=== PATIENT | female | born 1970 | race African-American/Black ===

== ENCOUNTER 2019-10-24 11:32 | Emergency (ER) | payer SELFPAY ==
--- NOTE | 2019-10-24 12:02 | ER Document Report ---
ED Medical Screen (RME) - General Chief Complaint: High Blood Pressure Stated Complaint: HIGH BLOOD PRESSURE/HEADACHE/DIZZYNESS Time Seen by Provider: 10/24/19 12:00 Mode of Arrival: Ambulatory Information source: Patient Notes: 49-year-old female presented to ED for elevated blood pressure, headache, dizziness, and dry heaves. She states the headache and dizziness has been for couple days has high blood pressure she does take amlodipine she does not take it religiously and her blood pressure was high when she took it this morning. States she did take her amlodipine this morning. I have greeted and performed a rapid initial assessment of this patient. A comprehensive ED assessment and evaluation of the patient, analysis of test results and completion of medical decision making process will be conducted by an additional ED providers. TRAVEL OUTSIDE OF THE [place] IN LAST 30 DAYS: No - Related Data Allergies/Adverse Reactions: No Known Allergies Allergy (Unverified 02/19/12 03:44) Past Medical History - Past Medical History Cardiac Medical History: Reports: Hx Hypertension Neurological Medical History: Reports: Hx Migraine Past Surgical History: Reports: Hx Section - x2 - Immunizations Hx Diphtheria, Pertussis, Tetanus Vaccination: No Physical Exam - Vital signs Vitals: Temp Pulse Resp BP Pulse Ox 98.3 F 79 16 200/112 H 100 10/24/19 11:57 10/24/19 11:57 10/24/19 11:57 10/24/19 11:57 10/24/19 11:57 Course - Vital Signs Vital signs: Temp Pulse Resp BP Pulse Ox 98.3 F 79 16 200/112 H 100 10/24/19 11:57 10/24/19 11:57 10/24/19 11:57 10/24/19 11:57 10/24/19 11:57
[2019-10-24] MEDS ORDERED: ONDANSETRON 4 MG TAB.RAPDIS PO ONE (12:03)
--- NOTE | 2019-10-24 13:05 | RADIOLOGY REPORT (SQ) ---
EXAM DESCRIPTION: CHEST 2 VIEWS COMPLETED DATE/TIME: 10/24/2019 12:54 pm REASON FOR STUDY: High blood pressure headache dizziness COMPARISON: 04/23/2016 EXAM PARAMETERS: NUMBER OF VIEWS: two views TECHNIQUE: Digital Frontal and Lateral radiographic views of the chest acquired. RADIATION DOSE: NA LIMITATIONS: none FINDINGS: LUNGS AND PLEURA: No opacities, masses or pneumothorax. No pleural effusion. MEDIASTINUM AND HILAR STRUCTURES: No masses or contour abnormalities. HEART AND VASCULAR STRUCTURES: The heart size is borderline. There is no pulmonary edema. BONES: No acute findings. HARDWARE: None in the chest. OTHER: No other significant finding. IMPRESSION: Borderline cardiomegaly without pulmonary edema. TECHNICAL DOCUMENTATION: JOB ID: [id number] 2010 [employer]- All Rights Reserved Reading location - IP/workstation name: [email or web address]
[2019-10-24 13:17] LABS: ABSOLUTE EOSINOPHILS # (AUTO) 0.2 10^3/uL (0.0-0.6); ABSOLUTE LYMPHOCYTES (AUTO) 0.9 10^3/uL (0.5-4.7); ABSOLUTE MONOCYTES (AUTO) 0.2 10^3/uL (0.1-1.4); BASOPHILS % (AUTO) 0.4 % (0-2); EOSINOPHILS % (AUTO) 2.5 % (0-6); HEMATOCRIT 40.4 % (36.0-47.0); MEAN CORPUSCULAR HEMOGLOBIN 29.4 pg (27.0-33.4); MEAN CORPUSCULAR HGB CONC 34.5 g/dL (32.0-36.0); MEAN CORPUSCULAR VOLUME 85 fl (80-97); MONOCYTES % (AUTO) 2.7 % (3-13); PLATELET COUNT 202 10^3/uL (150-450); RED BLOOD COUNT 4.74 10^6/uL (3.72-5.28); RED CELL DISTRIBUTION WIDTH 14.8 % (11.5-14.0); SEGMENTED NEUTROPHILS % (AUTO) 79.4 % (42-78); TOTAL CELLS COUNTED % (AUTO) 100 %; WHITE BLOOD COUNT 6.3 10^3/uL (4.0-10.5)
[2019-10-24 13:41] LABS: ALBUMIN 4.5 g/dL (3.5-5.0); ALKALINE PHOSPHATASE 117 U/L (38-126); ANION GAP 10 (5-19); ASPARTATE AMINO TRANSFERASE 28 U/L (14-36); BILIRUBIN,DIRECT 0.2 mg/dL (0.0-0.4); BILIRUBIN,TOTAL 0.6 mg/dL (0.2-1.3); BLOOD UREA NITROGEN 11 mg/dL (7-20); CALCIUM 8.9 mg/dL (8.4-10.2); CARBON DIOXIDE 29 mmol/L (22-30); CHLORIDE 99 mmol/L (98-107); GLUCOSE 99 mg/dL (75-110); POTASSIUM 3.8 mmol/L (3.6-5.0); TOTAL PROTEIN 8.4 g/dL (6.3-8.2)
--- NOTE | 2019-10-24 14:32 | EKG REPORT ---
SEVERITY:- ABNORMAL ECG - SINUS RHYTHM LEFT VENTRICULAR HYPERTROPHY : Confirmed by: Terrie Arreaga MD 24-Oct-2019 14:30:53
[2019-10-24 16:57] LABS: APPEARANCE,URINE SLIGHTLY-CLOUDY; BILIRUBIN,URINE NEGATIVE (NEGATIVE); COLOR,URINE YELLOW; GLUCOSE, URINE NEGATIVE (NEGATIVE); KETONES,URINE NEGATIVE (NEGATIVE); PROTEIN,URINE 100 mg/dL (NEGATIVE); URINE SPECIFIC GRAVITY 1.016; UROBILINOGEN,URINE NEGATIVE mg/dL (<2.0)
[2019-10-24] MEDS ORDERED: METOPROLOL SUCCINATE 25 MG TAB.SR.24H PO ONE (17:39)
[2019-10-24 18:28] VITALS: BP 150/104
--- NOTE | 2019-10-24 20:20 | ER Document Report ---
Entered by CHALINO RODRIGUEZ SCRIBE 10/24/19 [id number] Acting as scribe for:NELLIE BEASLEY DO ED General - General Chief Complaint: Blood Pressure Problem Stated Complaint: HIGH BLOOD PRESSURE/HEADACHE/DIZZYNESS Time Seen by Provider: 10/24/19 12:00 Mode of Arrival: Ambulatory Information source: Patient Notes: This 49-year-old female presents with her friend to the emergency department complaining of high blood pressure. Patient reports a headache all day today, bilateral LE toe tingling last night, lips tingling, dry heaving today and neck pain. Patient denies dysuria, vaginal discharge, chest pain, fever, cough and shortness of breath. She tells me her headache, which came on gradually, is improving. Patient states that she has not been taking her hypertension medication for the past year due to having reactions to the prescriptions that her physician prescribed. Patient states that she has called a new physician and has been trying to make an appointment recently. Patient's last normal menstrual period was 2 weeks ago, 10/09/2019-10/12/2019. TRAVEL OUTSIDE OF THE [place] IN LAST 30 DAYS: No - Related Data Allergies/Adverse Reactions: No Known Allergies Allergy (Unverified 02/19/12 03:44) Home Medications: amlodipine Past Medical History - General Information source: Patient - Social History Smoking Status: Never Smoker Cigarette use (# per day): No Chew tobacco use (# tins/day): No Frequency of alcohol use: None Drug Abuse: None Lives with: Family Family History: None Patient has suicidal ideation: No Patient has homicidal ideation: No - Past Medical History Cardiac Medical History: Reports: Hx Hypertension Neurological Medical History: Reports: Hx Migraine Past Surgical History: Reports: Hx Section - x2 - Immunizations Hx Diphtheria, Pertussis, Tetanus Vaccination: No Review of Systems - Review of Systems Constitutional: See HPI. denies: Fever EENT: No symptoms reported Cardiovascular: See HPI. denies: Chest pain Respiratory: See HPI. denies: Cough, Short of breath Gastrointestinal: No symptoms reported Genitourinary: See HPI. denies: Dysuria Female Genitourinary: See HPI, Last menstrual period. denies: Vaginal discharge Musculoskeletal: See HPI, Neck pain Skin: No symptoms reported Hematologic/Lymphatic: No symptoms reported Neurological/Psychological: See HPI, Headaches -: Yes All other systems reviewed and negative Physical Exam - Vital signs Vitals: Temp Pulse Resp BP Pulse Ox 98.3 F 79 16 200/112 H 100 10/24/19 11:57 10/24/19 11:57 10/24/19 11:57 10/24/19 11:57 10/24/19 11:57 - Notes Notes: Physical Exam: General: Alert, appears well. HEENT: Normocephalic. Atraumatic. PERRL. Extraocular movements intact. Oropharynx clear. Neck: Supple. Non-tender. Respiratory: No respiratory distress. Clear and equal breath sounds bilaterally. Cardiovascular: Regular rate and rhythm. Abdominal: Obese. Non-tender. No distension. Normal Bowel Sounds. Back: No gross abnormalities. Extremities: Moves all four extremities. Upper extremities: Normal inspection. Normal ROM. Lower extremities: Normal inspection. No edema. Normal ROM. Neurological: Normal cognition. AAOx4. Normal speech. Psychological: Normal affect. Normal Mood. Skin: Warm. Dry. Normal color. Course - Vital Signs Vital signs: Temp Pulse Resp BP Pulse Ox 98.4 F 79 18 150/104 H 100 10/24/19 18:27 10/24/19 11:57 10/24/19 18:18 10/24/19 18:27 10/24/19 18:18 - Laboratory Result Diagrams: 10/24/19 12:50 10/24/19 12:50 Laboratory results interpreted by me: 10/24/19 10/24/19 10/24/19 12:50 12:50 15:52 RDW 14.8 H [place] % (Auto) 2.7 L Seg Neutrophils % 79.4 H Total Protein 8.4 H Urine Protein 100 H Leukocyte Esterase Rfl TRACE H - EKG Interpretation by Me EKG shows normal: Sinus rhythm Rate: Normal [place]/QRS: Left axis deviation - NSR Left [place] [address] elevation or depression my interpretation. Discharge - Discharge Clinical Impression: Hypertension Qualifiers: Hypertension type: unspecified Qualified Code(s): I10 - Essential (primary) hypertension Headache Qualifiers: Headache type: unspecified Headache chronicity pattern: acute headache Intractability: not intractable Qualified Code(s): R51 - Headache Condition: Good Disposition: HOME, SELF-CARE Instructions: Beta Blockers ([facility]), High Blood Pressure ([facility]), High Blood Pressure, Requiring Treatment ([facility]) Additional Instructions: Your blood pressure was elevated here and needs to be rechecked. See your doctor in follow up. Please return here for any problems or any concerns including but not limited to chest pain or shortness of breath or headache not relieved by tylenol or ibuprofen. Prescriptions: Metoprolol Succinate [[place]sp[place] Sprinkle] 25 mg PO DAILY #14 cap.[email or web address] I personally performed the services described in the documentation, reviewed and edited the documentation which was dictated to the scribe in my presence, and it accurately records my words and actions.
== END 2019-10-24 18:31 | disposition home or self-care (01) ==
LOC: ER 11:32
DX: I10 Essential (primary) hypertension (principal); R51 Headache; R42 Dizziness and giddiness; R20.2 Paresthesia of skin
CPT/HCPCS: 93005; 99285; 36415; 83690; 84703; 85025; 80053; 81001; 84484; 71046; 93010; S0119